=== PATIENT | female | born 1985 | race Caucasian/White ===

== ENCOUNTER → 2016-08-06 | Outpatient (REF) | payer BC ==
[~2016-08-06] MED LIST: ACET50TA PO; IBUP80TA PO; VITAPRTA PO
== END ==
LOC: M LAB REF 17:16
PROVIDERS: ATTEND Advanced Practice Midwife
DX: Z12.4 Encounter for screening for malignant neoplasm of cervix (principal)

== ENCOUNTER → 2017-08-11 | Outpatient (REF) | payer BC | LOC: M LAB REF 13:39 | DX: Z12.4 Encounter for screening for malignant neoplasm of cervix (principal) | CPT/HCPCS: G0123 ==

== ENCOUNTER 2018-04-02 21:06 | Emergency (ER) | payer BC ==
[~2018-04-02 21:06] MED LIST changes: -ACET50TA PO; +MAPA500T2 PO
[2018-04-02] MEDS ORDERED: PREVTAB2 (21:25)
[2018-04-02] MEDS ORDERED: REXU1TAB2 (21:25)
[2018-04-02] MEDS ORDERED: VENL150C43 (21:25)
[2018-04-02 23:11] VITALS: BP 115/77
== END 2018-04-02 23:13 | disposition home or self-care (01) ==
LOC: M ED 21:06
DX: F32.9 Major depressive disorder, single episode, unspecified (principal); Z91.5 Personal history of self-harm; F17.210 Nicotine dependence, cigarettes, uncomplicated; Z79.899 Other long term (current) drug therapy

== ENCOUNTER → 2018-08-31 | Outpatient (CLI) | payer BC ==
[~2018-08-31] MED LIST changes: +PREVTAB2; +REXU1TAB2; +VENL150C43
[2018-09-02 14:07] LABS: HPV HYBRID CAPTURE II Positive (Negative)
== END ==
LOC: M SMT 11:12
PROVIDERS: ATTEND Advanced Practice Midwife
DX: Z12.4 Encounter for screening for malignant neoplasm of cervix (principal); R87.612 Low grade squamous intraepithelial lesion on cytologic smear of cervix (LGSIL); R87.810 Cervical high risk human papillomavirus (HPV) DNA test positive; Z13.71 Encounter for nonprocreative screening for genetic disease carrier status
CPT/HCPCS: 36415; 87624; G0123

== ENCOUNTER → 2018-10-11 | Outpatient (REF) | payer BC | LOC: M LAB REF 13:01 | PROVIDERS: ATTEND Obstetrics & Gynecology | DX: R87.612 Low grade squamous intraepithelial lesion on cytologic smear of cervix (LGSIL) (principal) ==

== ENCOUNTER → 2018-10-27 | Outpatient (REF) | payer BC | LOC: M LAB REF 10:57 | PROVIDERS: ATTEND Physician Assistant | DX: R30.0 Dysuria (principal) ==

== ENCOUNTER → 2019-04-21 | Outpatient (REF) | payer BC ==
[2019-04-21 22:11] LABS: CHLAMYDIA DNA AMPLIFICATION POSITIVE (NEGATIVE); GC DNA AMPLIFICATION NEGATIVE (NEGATIVE)
== END ==
LOC: M LAB 20:00
PROVIDERS: ATTEND Physician Assistant
DX: Z20.9 Contact with and (suspected) exposure to unspecified communicable disease (principal)

== ENCOUNTER → 2019-04-22 | Outpatient (CLI) | payer BC | LOC: M WUC 14:02 | PROVIDERS: ATTEND Physician Assistant | DX: Z20.9 Contact with and (suspected) exposure to unspecified communicable disease (principal) ==

== ENCOUNTER 2020-07-09 10:06 | Emergency (ER) | payer BC ==
[~2020-07-09] VITALS: Ht 167.6 cm; Wt 59.1 kg
[2020-07-09] MEDS ORDERED: LAMO100T3 (10:26)
[2020-07-09] MEDS ORDERED: BUSP15TA47 (10:26)
--- NOTE | 2020-07-09 12:15 | REP ---
INDICATION: dysparunia, pelvic pain, eval for TOA, cysts COMPARISON: 08/22/2011 TECHNIQUE: Transabdominal pelvic ultrasound followed by transvaginal examination for better evaluation of the endometrium and adnexa with color Doppler evaluation of the ovaries. FINDINGS: Bladder is unremarkable and measures 6.0 x 5.2 x 9.2 cm. Anteverted uterus measures 8.1 x 3.5 x 4.4 cm. The endometrial complex measures 7.0 mm thickness. No discrete uterine or endometrial abnormalities are appreciated. IUD identified in central satisfactory position. Bilateral ovaries are normal in vascularity without evidence for torsion. Right ovary measures 3.0 x 1.4 x 1.5 cm; R I = 0.49. Left ovary measures 3.7 x 2.6 x 3.4 cm with 2.8 x 2.3 x 2.7 cm complex presumed physiologic hemorrhagic cyst; R I = 0.45. IMPRESSION: 1. Normal uterus and right ovary. 2. Complex likely physiologic hemorrhagic cyst in the left ovary is identified. A complex cyst in the left ovary was also noted on 2011 examination which may be unrelated or stable. Correlation is recommended and if necessary repeat examination in 4-6 weeks should be considered to evaluate for resolution. <Electronically signed by Martin Day > 07/09/20 1311
[2020-07-09 12:42] LABS: BASO % 0.1 % (0.0-1.0); HEMATOCRIT 42.3 % (36.0-47.0); HEMOGLOBIN 14.4 g/dl (12.0-15.5); LYMPH % 26.6 % (24.0-44.0); MEAN CORPUSCULAR HEMOGLOBIN 31.7 pg (27.0-33.0); MEAN CORPUSCULAR VOLUME 93.2 fl (80.0-96.0); MONO # 0.4 10^3/uL (0.0-0.8); MONO % 5.8 % (2.0-8.0); NEUTROPHILS # 4.9 10^3/uL (1.5-8.5); NEUTROPHILS % 67.1 % (36.0-66.0); PLATELET COUNT, AUTOMATED 248 10^3/uL (150-450); RED BLOOD COUNT 4.54 10^6/uL (4.00-5.40); WHITE BLOOD COUNT 7.4 10^3/uL (4.0-10.0)
[2020-07-09 13:10] LABS: ALBUMIN 4.1 GM/DL (3.2-5.2); BILIRUBIN,DIRECT 0.1 MG/DL (0.0-0.2); BILIRUBIN,TOTAL 0.4 MG/DL (0.2-1.0); TOTAL PROTEIN 6.7 GM/DL (6.4-8.2)
[2020-07-09 13:49] VITALS: BP 110/75
[2020-07-09 14:05] LABS: CHLAMYDIA DNA AMPLIFICATION NEGATIVE (NEGATIVE); GC DNA AMPLIFICATION NEGATIVE (NEGATIVE)
== END 2020-07-09 14:36 | disposition home or self-care (01) ==
LOC: M ED 10:06
DX: N83.202 Unspecified ovarian cyst, left side (principal); N94.12 Deep dyspareunia; R10.815 Periumbilic abdominal tenderness; F17.210 Nicotine dependence, cigarettes, uncomplicated; Z79.899 Other long term (current) drug therapy

== ENCOUNTER → 2020-08-06 | Outpatient (CLI) | payer BC ==
[~2020-08-06] MED LIST changes: +BUSP15TA47; +GASTROGRAFIN SOLUTION 30ML (Q9963) As Ordered ONE; +ISOVUE-370 76% 100ML VIAL As Ordered ONE; +LAMO100T3
--- NOTE | 2020-08-06 22:26 | REP ---
INDICATION: UNSPECIFIED ABDOMINAL PAIN. COMPARISON: None. TECHNIQUE: Helical scanning is acquired and 3 mm axial images re-formatted. Coronal and sagittal MPR images are generated. The CT contrast enhancement dose is 100 mL of intravenous Isovue 370. Oral contrast was also administered. FINDINGS: Preliminary digital supervisor webbing radiograph demonstrates an unremarkable bowel gas pattern. There is minimal diffuse fatty infiltration of the liver. There is a small peripheral 10 mm cyst in the right lobe of the liver near the dome of the diaphragm. No other focal liver lesion is seen. The spleen is unremarkable. Normal adrenal glands are observed bilaterally. No abnormality is noted in the pancreas or in the gallbladder. The kidneys enhance symmetrically and are morphologically intact. No retroperitoneal mass or adenopathy is observed. An IUD is noted in the uterus. There is a small quantity of physiologic fluid in the cul-de-sac. No ovarian mass or cyst is seen. Urinary bladder is intact. Small and large intestinal bowel loops are unremarkable in the abdomen and pelvis. The appendix is not confidently identified but there are no inflammatory changes adjacent to the cecum or elsewhere in the abdomen or pelvis. Is small and large bowel loops are normal in the abdomen and pelvis. The lung bases are clear on axial CT images. IMPRESSION: No acute abdominal or pelvic abnormality. IUD in place. Tiny hepatic cyst and minimal diffuse fatty infiltration of the liver. <Electronically signed by Eduardo Robles > 08/06/20 2201
== END ==
LOC: M RAD 16:48
PROVIDERS: ATTEND Physician Assistant
DX: K76.89 Other specified diseases of liver (principal); R10.9 Unspecified abdominal pain; K76.0 Fatty (change of) liver, not elsewhere classified
CPT/HCPCS: 74177; Q9963; Q9967

== ENCOUNTER → 2020-12-03 | Outpatient (CLI) | payer BC ==
[~2020-12-03] MED LIST changes: -GASTROGRAFIN SOLUTION 30ML (Q9963) As Ordered ONE; -ISOVUE-370 76% 100ML VIAL As Ordered ONE
[2020-12-03 14:20] LABS: HEMATOCRIT 41.8 % (36.0-47.0); HEMOGLOBIN 13.9 g/dl (12.0-15.5); MEAN CORPUSCULAR HEMOGLOBIN 31.2 pg (27.0-33.0); MEAN CORPUSCULAR HGB CONC 33.3 g/dl (32.0-36.5); MEAN CORPUSCULAR VOLUME 93.7 fl (80.0-96.0); PLATELET COUNT, AUTOMATED 261 10^3/uL (150-450); RED BLOOD COUNT 4.46 10^6/uL (4.00-5.40); WHITE BLOOD COUNT 6.1 10^3/uL (4.0-10.0)
[2020-12-03 14:53] LABS: CHOLESTEROL RISK RATIO 2.805 (<5); THYROID STIMULATING HORMONE 0.602 uIU/ML (0.358-3.740)
== END ==
LOC: M PLALAB 10:06
PROVIDERS: ATTEND Advanced Practice Midwife
DX: Z13.220 Encounter for screening for lipoid disorders (principal); Z13.29 Encounter for screening for other suspected endocrine disorder

== ENCOUNTER → 2020-12-03 | Outpatient (REF) | payer BC | LOC: M PLALAB 07:02 | PROVIDERS: ATTEND Advanced Practice Midwife | DX: Z01.419 Encounter for gynecological examination (general) (routine) without abnormal findings (principal); Z77.9 Other contact with and (suspected) exposures hazardous to health | CPT/HCPCS: 87624; G0123 ==

== ENCOUNTER → 2022-10-01 | Outpatient (REF) | payer BC | LOC: M SFHCWAGY 15:09 | PROVIDERS: ATTEND Advanced Practice Midwife | DX: Z12.4 Encounter for screening for malignant neoplasm of cervix (principal) | CPT/HCPCS: 87624; G0123 ==

== ENCOUNTER → 2024-04-25 | Outpatient (CLI) | payer BC | LOC: M RAD 13:42 | PROVIDERS: ATTEND Otolaryngology | DX: R59.9 Enlarged lymph nodes, unspecified (principal) ==